=== PATIENT | male | born 1995 | race Caucasian/White ===

== ENCOUNTER 2017-05-16 16:57 | Emergency (ER) | payer OTHER, SELFPAY ==
[2017-05-16 16:59] VITALS: BP 134/80; PULSE 73; RESP 18; TEMP 36.9; O2SAT 97; BMI 18.0
--- NOTE | 2017-05-16 17:58 | RAD_ITS ---
STUDY: X-RAY CHEST REASON FOR EXAM: Male, 21 years old. Cough for one week TECHNIQUE: PA and lateral views of the chest. COMPARISON: None. FINDINGS: The lungs are clear and expanded. Normal variant azygous fissure. There is no demonstrated pleural abnormality. Normal size heart. Normal mediastinum and roger. Normal visualized pulmonary arteries. Normal visualized aortic arch and descending thoracic aorta. Normal visualized thoracic spine. Normal visualized ribs, clavicles, and shoulders. There is no demonstrated abnormality of the visualized soft tissue structures of the upper abdomen. RAD/Chest PA and Lateral IMPRESSION: No acute cardiopulmonary process. Electronically Signed: Graham Wolfe MD at 19:19 EST , Service support ,
--- NOTE | 2017-05-16 19:49 | ED.DCSUM_ITS ---
- ER Visit Summary Date of Service: 05/16/17 Chief Complaint: Cough History of Present Illness: The patient is a 21 M with a cough for the past 5 days. He occasionally has green sputum. He states he had a fever last week, but this has been resolved for several days. He denies wheezing. He does report having occasional posttussive emesis. He is a smoker. Physical Examination: Vital signs are unremarkable. Pulse ox is 97% on room air. Patient is in no acute distress and is nontoxic appearing. Head and neck examination is normal. Heart is regular rate and rhythm. Palpable pulses are noted throughout. Lungs are clear with good air movement throughout. Abdomen is soft and nontender. Bowel sounds are noted. Test Results: Two-view chest x-ray reveals no acute process. Emergency Department Course and Treatment: Test results were discussed with the patient. He is given Tessalon Perles to help control cough. He can also use Robitussin [id number]. Treatment Plan: [] Disposition: Discharge Impression: Viral URI with cough This note was generated with [employer] dictation software. It may contain incorrect words, spelling, and punctuation that were not noted in review of the chart prior to signing ED Disposition - Plan for ED Patient: Disposition: Home or Assisted Living Chief Complaint: Cough Instructions: ED Upper Resp Infec No Abx Tx Prescriptions: Benzonatate [Tessalon Perle] 100 mg PO 4X/DAY PRN PRN #20 capsule PRN Reason: Cough Referrals: Gavino Ram III, MD [Primary Care Provider] - 1-2 Weeks
[2017-05-16 19:55] VITALS: PULSE 98; RESP 12; O2SAT 100
== END 2017-05-16 19:55 | disposition home or self-care (01) ==
PROVIDERS: Emergency Provider Emergency Medicine; Family Provider Family Medicine; PCP Family Medicine
DX: J06.9 Acute upper respiratory infection, unspecified (principal); R05 Cough; F17.200 Nicotine dependence, unspecified, uncomplicated
CPT/HCPCS: 71046; 99282

== ENCOUNTER 2017-06-15 19:16 | Emergency (ER) | payer OTHER, SELFPAY ==
[2017-06-15 19:17] VITALS: BP 137/86; PULSE 89; RESP 18; TEMP 36.8; O2SAT 96; BMI 17.5
[2017-06-15 19:27] VITALS: O2SAT 97
--- NOTE | 2017-06-15 19:49 | ED.VISSUMM ---
- ER Visit Summary Date of Service: 06/15/17 Chief Complaint: [Cough] History of Present Illness: The patient is a 22 M [presents with a cough ?1 week. Patient coughing up thick yellow sputum. Patient had subjective fever. Patient denies sore throat or body aches. Patient denies sick contacts. Patient denies shortness of breath.] Physical Examination: [HEENT-PERRLA, EOMI. Cranial nerves II through XII grossly intact. TMs clear. Mucous membranes moist. No adenopathy. Cardiovascular-regular rate and rhythm without murmur or ectopy Lungs-clear to auscultation, chest wall stable without crepitus or subcu emphysema Abdomen-normoactive bowel sounds, soft, nontender, no rebound or rigidity, no peritoneal signs. Extremities-intact ?4, normal range of motion, normal pulses, atraumatic] Test Results: [None indicated] Emergency Department Course and Treatment: [Patient was started on Zithromax and Tessalon Perles] Treatment Plan: [Treat with Zithromax and Tessalon Perles] Disposition: [Discharged to home in stable condition. Patient advised to return if increasing shortness of breath or condition should worsen in any way.] Impression: [Upper respiratory infection] This note was generated with [employer] dictation software. It may contain incorrect words, spelling, and punctuation that were not noted in review of the chart prior to signing ED Disposition - Plan for ED Patient: Chief Complaint: Cough Referrals: Gavino Ram III, MD [Primary Care Provider] -
--- NOTE | 2017-06-15 19:52 | ED.DEP ---
ED Disposition - Plan for ED Patient: Chief Complaint: Cough Instructions: ED Upper Resp Infec Abx Tx Prescriptions: Azithromycin [Zithromax] 250 mg PO DAILY #4 tab Benzonatate [Tessalon Perle] 200 mg PO TID PRN PRN #20 cap PRN Reason: Cough Referrals: Gavino Ram III, MD [Primary Care Provider] - 5-7 Days
[2017-06-15] MEDS: Azithromycin 250 MG Tablet 500 MG PO (20:00)
--- NOTE | 2017-06-15 20:04 | ED.RN ---
[PT EDUCATED ON WRITTEN AND VERBAL DISCHARGE INSTRUCTIONS AND HOME GOING PRESCRIPTIONS. PT VERBALIZES UNDERSTANDING AND DENIES ANY FURTHER QUESTIONS. MEDICATION GIVEN AND PT SWALLOWED WITHOUT DIFFICULTY. PT AMBULATORY HOME WITH SPOUSE.
== END 2017-06-15 20:05 | disposition home or self-care (01) ==
PROVIDERS: Emergency Provider Emergency Medicine; Family Provider Family Medicine; PCP Family Medicine
DX: J06.9 Acute upper respiratory infection, unspecified (principal); Z72.0 Tobacco use
CPT/HCPCS: 99283

== ENCOUNTER 2017-09-08 19:11 | Emergency (ER) | payer OTHER, SELFPAY ==
[2017-09-08 19:13] VITALS: BP 128/79; PULSE 94; RESP 18; TEMP 37.3; O2SAT 98; BMI 17.6
--- NOTE | 2017-09-08 19:49 | EKG12_ITS ---
Test Reason : CP Blood Pressure : / mmHG Vent. Rate : 073 BPM Atrial Rate : 073 BPM P-R Int : 158 ms QRS Dur : 098 ms QT Int : 358 ms P-R-T Axes : 075 085 079 degrees QTc Int : 394 ms Normal sinus rhythm Normal ECG Confirmed by ZULLY LEBLANC, TALI ([id number]), fashion editor KLAUDIA CARNES ([id number]) on 09/14/2017 3:09:47 PM Referred By: ALEKSANDR Confirmed By:TALI ANDREA MD
--- NOTE | 2017-09-08 19:53 | ED.DCSUM_ITS ---
- ER Visit Summary Date of Service: 09/08/17 Chief Complaint: Chest pain History of Present Illness: The patient is a 22 M presenting with chest pain starting around 2 AM. He states this was a continuous pain throughout the day. He was able to work throughout the day. He has pain in the left side of his chest. He denies nausea or vomiting. Denies diaphoresis. Complains of mild shortness of breath. He has not taken medications prior to arrival. He is a smoker. No other coronary disease risk factors. No PE/DVT risk. Physical Examination: Vitals are stable. Patient is afebrile. Alert no acute distress. HEENT exam is unremarkable. Neck is supple. Lungs are clear and equal bilaterally. Left-sided chest tenderness with no crepitus Heart is regular rate and rhythm. Abdomen is soft nontender nondistended. Extremities are unremarkable. Skin is warm and dry. No focal neurologic deficit. Remainder of exam is unremarkable. Emergency Department Course and Treatment: EKG is sinus rate of 73 with no acute ischemic changes. Patient is given Toradol IM. Chest x-ray shows no acute process. CBC, chemistries unremarkable. Troponin is negative. He was given Toradol with improvement of his pain. He is given a prescription for Naprosyn. Advised to follow-up with primary care physician. Advised return to ED if worsening complaints. Disposition: Discharge home Impression: Chest wall pain This note was generated with [employer] dictation software. It may contain incorrect words, spelling, and punctuation that were not noted in review of the chart prior to signing ED Disposition - Plan for ED Patient: Disposition: Home or Assisted Living Chief Complaint: Chest Pain Instructions: ED Strain Chest Wall Prescriptions: Naproxen [Naprosyn] 500 mg PO BID PRN #20 tablet Referrals: Gavino Ram III, MD [Primary Care Provider] -
[2017-09-08] MEDS: Ketorolac 60 MG/2 ML Vial IM (19:54)
--- NOTE | 2017-09-08 19:54 | NURSING ---
NO OLD EKG
--- NOTE | 2017-09-08 19:55 | RAD_ITS ---
STUDY: X-RAY CHEST REASON FOR EXAM: Male, 22 years old. Chest pain TECHNIQUE: Single frontal view of the chest. COMPARISON: May 16, 2017 FINDINGS: The lungs are hyperaerated. The lungs are clear and expanded. There is no demonstrated pleural abnormality. Normal size heart. Normal mediastinum and roger. Normal visualized pulmonary arteries. Normal visualized aortic arch and descending thoracic aorta. Normal visualized thoracic spine. Normal visualized ribs, clavicles, and shoulders. There is no demonstrated abnormality of the visualized soft tissue structures of the upper abdomen. RAD/Chest 1 View (Portable) IMPRESSION: Small airways disease Electronically Signed: Shon Hussein MD at 20:25 EDT , Service support ,
[2017-09-08 19:59] VITALS: O2SAT 98
[2017-09-08 20:08] LABS: Absolute Lymphocyte Count 1.78 X10^3/ul (0.83-4.51); Absolute Neutrophil Count 4.5 X10^3/uL (2.0-7.7); Basophil# 0.03 X10^3/uL; Basophil% 0.4 % (0-1); Eosinophil# 0.02 X10^3/uL; Eosinophils% 0.3 % (0-5); Hematocrit 41.3 % (40-54); Hemoglobin 14.5 g/dl (13.0-16.5); Lymphocyte # 1.78 X10^3/ul (4.0); Lymphocyte % 25.8 % (19-41); Mean Corp Hgb Conc 35.1 g/gl (32-36); Mean Corpuscular Hgb 28.3 pg (27.0-32.0); Mean Corpuscular Volume 80.5 fL (80-94); Mean Platelet Vol. 9.7 fl (6.2-12.0); Monocyte% 8.7 % (0-10); Neutrophil # 4.46 X10^3/uL (2.7-7.7); Neutrophil % 64.8 % (47-70); Platelet Count 231 K/mm3 (150-450); RBC Distribution Width CV 12.3 % (11.6-14.6); Red Blood Count 5.13 M/mm3 (4.6-6.2); White Blood Count 6.9 K/mm3 (4.4-11.0)
[2017-09-08 20:09] LABS: POSITIVE COUNT NO; POSITIVE DIFFERENTIAL NO; POSITIVE MORPHOLOGY NO
[2017-09-08 20:12] VITALS: BP 114/80; PULSE 71; RESP 13; O2SAT 98
[2017-09-08 20:23] LABS: Anion Gap 8 (5-15); BUN 9 mg/dL (7-18); BUN/Creat Ratio 10.3 RATIO (10-20); Calcium,Total 8.7 mg/dL (8.5-10.1); Chloride 105 mmol/L (98-107); Creatinine, Serum 0.88 mg/dL (0.70-1.30); EST Glomerular Filtration Rate 116 mL/min (>60); Est Glom Filt Rate - Afr Amer 141 mL/min (>60); Estimated Creatinine Clearance 116.82 ml/min; Glucose 88 mg/dL (74-106); Potassium 3.6 mmol/L (3.5-5.1); Sodium Level 144 mmol/L (136-145)
[2017-09-08 21:00] VITALS: BP 114/80; PULSE 73; RESP 13; O2SAT 97
--- NOTE | 2017-09-08 21:56 | ED.DEP ---
ED Disposition - Plan for ED Patient: Chief Complaint: Chest Pain Instructions: ED Strain Chest Wall Prescriptions: Naproxen [Naprosyn] 500 mg PO BID PRN #20 tablet Referrals: Gavino Ram III, MD [Primary Care Provider] -
[2017-09-08 21:58] VITALS: BP 126/78; PULSE 57; RESP 12; O2SAT 97
--- NOTE | 2017-09-08 22:06 | ED.RN ---
REVIEWED D/C INSTRUCTIONS, FOLLOW UP CARE, AND S/S THAT WOULD WARRANT A RETURN TO THE ED WITH PT. PT VERBALIZED AN UNDERSTANDING AND DENIES FURTHER QUESTIONS FOR THIS RN. PT SKIN P/W/D, RESP EVEN AND UNLABORED, PT A&O X 3, NO DISTRESS NOTED. PT AMBULATED OUT OF ED, GAIT STEADY.
== END 2017-09-08 22:08 | disposition home or self-care (01) ==
LOC: ED 19:51
PROVIDERS: Emergency Provider Emergency Medicine; Family Provider Family Medicine; PCP Family Medicine
DX: R07.89 Other chest pain (principal); F17.200 Nicotine dependence, unspecified, uncomplicated
CPT/HCPCS: 71045; 80048; 84484; 85025; 93005; 96372; 99284; A4216

== ENCOUNTER 2018-02-24 | Emergency (ER) | payer OTHER, SELFPAY ==
[2018-02-24 00:03] VITALS: BP 129/96; PULSE 83; RESP 20; TEMP 36.7; O2SAT 97; BMI 18.5
--- NOTE | 2018-02-24 00:28 | ED.DCSUM_ITS ---
- ER Visit Summary Date of Service: 02/24/18 Chief Complaint: Lump at right groin History of Present Illness: The patient is a 22 M who presents with a lump in his right groin. He noticed it a few days ago. It is tender. He states that the visitor with him found out about it so made him to the emergency department. He denies any fevers nausea vomiting diarrhea abdominal pain. Physical Examination: Afebrile vitals are normal Heart regular rate and rhythm Lungs clear Abdomen soft nontender nondistended There is a tender mobile firm nodule at the right groin which I believe is an enlarged lymph node. I do not believe this is a hernia. Test Results: Not indicated Emergency Department Course and Treatment: Patient advised on supportive care and advised to follow-up with his primary care physician. He understands to return for new or worsening symptoms and was discharged home. Treatment Plan: [] Disposition: Discharge Impression: Lymphadenopathy This note was generated with [employer] dictation software. It may contain incorrect words, spelling, and punctuation that were not noted in review of the chart prior to signing ED Disposition - Plan for ED Patient: Chief Complaint: Abd Pain Referrals: Gavino Ram III, MD [Primary Care Provider] -
--- NOTE | 2018-02-24 00:28 | ED.DEP ---
ED Disposition - Plan for ED Patient: Chief Complaint: Abd Pain Referrals: Gavino Ram III, MD [Primary Care Provider] - Additional Instructions: You were seen today for a lump in the right groin. This does not appear to be a hernia. Use Tylenol or ibuprofen for pain and follow-up with your primary care physician. He should return to the emergency department should he develop new or worsening symptoms such as fevers abdominal pain vomiting.
--- OUTSIDE RECORDS SUMMARY | 2018-04-21 00:24 | XMS RPT_ITS ---
:1995 Author Organization OHIP Care Team Providers Name Role Phone Gavino Ram III Primary Care Unavailable Ellen Nails Attending Unavailable Gavino Ram III Primary Care Unavailable Anil Phillips Attending Unavailable Yo VAZQUEZ, Gavino Primary Care Unavailable Ashley Mistry Attending Unavailable Cebul III, Gavino Primary Care Unavailable Lj Reeves Attending Unavailable PROBLEMS PROBLEMS No Problem Records FoundPROCEDURES PROCEDURES No Procedure Records FoundRESULTS RESULTS DISCHARGE INSTRUCTION Observed: 02/24/2018 Status: F Source: CASCADE 12:29 AM [facility] REPOSITORY [facility] Medical Records Department [address] [place] [address] Discharge Instruction 02/24/18 0028 MR#: [id number] Acct: [id number] Name: DOMINIQUE VIZCAINO Rep #: [id number] : 1995 22 From: Lj Reeves MD PCP: Gavino Ram III, MD Status: PRE ER ED Disposition - Plan for ED Patient: Chief Complaint: Abd Pain Referrals: Gavino Ram III, MD [Primary Care Provider] - Additional Instructions: You were seen today for a lump in the right groin. This does not appear to be a hernia. Use Tylenol or ibuprofen for pain and follow-up with your primary care physician. He should return to the emergency department should he develop new or worsening symptoms such as fevers abdominal pain vomiting. What to do if you have Problems For any increased pain, shortness of breath, bleeding, nausea or vomiting, chest pain, or any unexpected problems, contact your Primary Care Provider. Call [facility] ([phone]) or report to the closest Emergency Room. Call 911 if necessary. 02/24/18 0029 <Electronically signed by Lj Reeves MD> Date Lj Reeves MD Cosigner Signature (If Indicated): Date CC: Gavino Ram III, MD EMERGENCY DEPARTMENT Observed: 02/24/2018 Status: F Source: CASCADE SUMMARY 12:28 AM [facility] REPOSITORY [facility] Medical Records Department [address] [place] [address] Emergency Department Summary 02/24/18 0027 MR#: [id number] Acct: [id number] Name: DOMINIQUE VIZCAINO Rep #: [id number] : 1995 22 From: Lj Reeves MD PCP: Gavino Ram III, MD Status: PRE ER - ER Visit Summary Date of Service: 02/24/18 Chief Complaint: Lump at right groin History of Present Illness: The patient is a 22 M who presents with a lump in his right groin. He noticed it a few days ago. It is tender. He states that the visitor with him found out about it so made him to the emergency department. He denies any fevers nausea vomiting diarrhea abdominal pain. Physical Examination: Afebrile vitals are normal Heart regular rate and rhythm Lungs clear Abdomen soft nontender nondistended There is a tender mobile firm nodule at the right groin which I believe is an enlarged lymph node. I do not believe this is a hernia. Test Results: Not indicated Emergency Department Course and Treatment: Patient advised on supportive care and advised to follow-up with his primary care physician. He understands to return for new or worsening symptoms and was discharged home. Treatment Plan: [] Disposition: Discharge Impression: Lymphadenopathy This note was generated with benchee dictation software. It may contain incorrect words, spelling, and punctuation that were not noted in review of the chart prior to signing ED Disposition - Plan for ED Patient: Chief Complaint: Abd Pain Referrals: Gavino Ram III, MD [Primary Care Provider] - What to do if you have Problems For any increased pain, shortness of breath, bleeding, nausea or vomiting, chest pain, or any unexpected problems, contact your Primary Care Provider. Call [facility] ([phone]) or report to the closest Emergency Room. Call 911 if necessary. 02/24/18 0028 <Electronically signed by Lj Reeves MD> Date Lj Reeves MD Cosigner Signature (If Indicated): Date CC: Gavino Ram III, MD 12 LEAD ELECTROCARDIOGRAM Observed: 09/14/2017 Status: F Source: YUVAL 3:10 PM [facility] REPOSITORY [facility] Cardiovascular Services [address] [place] [address] 12 Lead EKG 09/08/171917 MR#: [id number] Acct: [id number] Name: DOMINIQUE VIZCAINO Rep #: [id number] : 1995 22 From: Jostin Andrea MD Attending Dr: Status: DEP ER Ordering Dr: Ashley Mistry MD Date: 09/08/17 Location: ED Sex: M C Admitted: Test Reason : CP Blood Pressure : / mmHG Vent. Rate : 073 BPM Atrial Rate : 073 BPM P-R Int : 158 ms QRS Dur : 098 ms QT Int : 358 ms P-R-T Axes : 075 085 079 degrees QTc Int : 394 ms Normal sinus rhythm Normal ECG Confirmed by ZULLY LEBLANC, JOSTIN ([id number]), greeting card editor KLAUDIA CARNES ([id number]) on 09/14/2017 3:09:47 PM Referred By: ALEKSANDR Confirmed By:JOSTIN ANDREA MD 09/14/17 1509 Date Jostin Andrea MD CC: Ashley Mistry MD; Gavino Ram III, MD Signed EMERGENCY DEPARTMENT Observed: 09/08/2017 Status: F Source: CASCADE SUMMARY 10:33 PM [facility] REPOS[facility] Medical Records Department [address] [place] [address] Emergency Department Summary 09/08/171950 MR#: [id number] Acct: [id number] Name: DOMINIQUE VIZCAINO Rep #: [id number] : 1995 22 From: Ashley Mistry MD PCP: Gavino Ram III, MD Status: DEP ER - ER Visit Summary Date of Service: 09/08/17 Chief Complaint: Chest pain History of Present Illness: The patient is a 22 M presenting with chest pain starting around 2 AM. He states this was a continuous pain throughout the day. He was able to work throughout the day. He has pain in the left side of his chest. He denies nausea or vomiting. Denies diaphoresis. Complains of mild shortness of breath. He has not taken medications prior to arrival. He is a smoker. No other coronary disease risk factors. No PE/DVT risk. Physical Examination: Vitals are stable. Patient is afebrile. Alert no acute distress. HEENT exam is unremarkable. Neck is supple. Lungs are clear and equal bilaterally. Left-sided chest tenderness with no crepitus Heart is regular rate and rhythm. Abdomen is soft nontender nondistended. Extremities are unremarkable. Skin is warm and dry. No focal neurologic deficit. Remainder of exam is unremarkable. Emergency Department Course and Treatment: EKG is sinus rate of 73 with no acute ischemic changes. Patient is given Toradol IM. Chest x-ray shows no acute process. CBC, chemistries unremarkable. Troponin is negative. He was given Toradol with improvement of his pain. He is given a prescription for Naprosyn. Advised to follow-up with primary care physician. Advised return to ED if worsening complaints. Disposition: Discharge home Impression: Chest wall pain This note was generated with benchee dictation software. It may contain incorrect words, spelling, and punctuation that were not noted in review of the chart prior to signing ED Disposition - Plan for ED Patient: Disposition: Home or Assisted Living Chief Complaint: Chest Pain Instructions: ED Strain Chest Wall Prescriptions: Naproxen [Naprosyn] 500 mg PO BID PRN #20 tablet Referrals: Gavino Ram III, MD [Primary Care Provider] - What to do if you have Problems For any increased pain, shortness of breath, bleeding, nausea or vomiting, chest pain, or any unexpected problems, contact your Primary Care Provider. Call [facility] ([phone]) or report to the closest Emergency Room. Call 911 if necessary. 09/08/17 2233 <Electronically signed by Ashley Mistry MD> Date Ashley Mistry MD Cosigner Signature (If Indicated): Date CC: Gavino Ram III, MD DISCHARGE INSTRUCTION Observed: 09/08/2017 Status: F Source: YUVAL 9:57 PM [facility] REPOS[facility]ORY [facility] Medical Records Department [address] [place] [address] Discharge Instruction 09/08/17 2156 MR#: [id number] Acct: [id number] Name: MARYELLEN HAYESDOMINIQEU ALEXA Rep #: [id number] : 1995 22 From: Ashley Mistry MD PCP: Gavino Ram III, MD Status: REG ER ED Disposition - Plan for ED Patient: Chief Complaint: Chest Pain Instructions: ED Strain Chest Wall Prescriptions: Naproxen [Naprosyn] 500 mg PO BID PRN #20 tablet Referrals: Gavino Ram III, MD [Primary Care Provider] - What to do if you have Problems For any increased pain, shortness of breath, bleeding, nausea or vomiting, chest pain, or any unexpected problems, contact your Primary Care Provider. Call [facility] ([phone]) or report to the closest Emergency Room. Call 911 if necessary. 09/08/17 1111 <Electronically signed by Ashley Mistry MD> Date Ashley Mistry MD Cosigner Signature (If Indicated): Date CC: Gavino Ram III, MD CBC W/DIFF, AUTOMATED Collected: 09/08/2017 Status: F Source: CASCADE 8:00 PM [facility] REPOSITORY TYPE CODE TESTS RESULT OUT OF RANGE REFERENCE UNITS LAB L100.1000 4.4-11.0 K/mm3 Normal WBC 6.9 LAB L100.1200 4.6-6.2 M/mm3 Normal RBC 5.13 LAB L100.1300 13.0-16.5 g/dl Normal HGB 14.5 LAB L100.1400 40-54 % Normal HCT 41.3 LAB L100.1500 80-94 fL Normal MCV 80.5 LAB L100.1600 27.0-32.0 pg Normal MCH 28.3 LAB L100.1700 32-36 g/gl Normal MCHC 35.1 LAB L100.1810 11.6-14.6 % Normal RDW CV 12.3 LAB L100.1820 35.1-43.9 fl Normal RDW SD 36.0 LAB L100.1900 150-450 K/mm3 Normal PLT 231 LAB L100.2000 6.2-12.0 fl Normal MPV 9.7 LAB L100.2100 47-70 % Normal NEUT% 64.8 LAB L100.2200 19-41 % Normal LY% 25.8 LAB L100.2300 0-10 % Normal MONO% 8.7 LAB L100.2400 0-5 % Normal EO% 0.3 LAB L100.2500 0-1 % Normal BASO% 0.4 LAB L100.2550 0.0-0.9 % Normal IM GRAN % 0.000 Result Comment: IG% - Immature Granulocytes (promyelocytes, myelocytes and metamyelocytes) > 1% indicates that a LEFT SHIFT is Present. LAB L100.2620 2.0-7.7 X10 3/uL Normal Absolute Neut 4.5 LAB L100.2720 0.83-4.51 X10 3/ul Normal Absolute Lymph 1.78 Performed By: #### L100.0100 #### [facility] [address] [place], [address] BASIC METABOLIC Collected: 09/08/2017 Status: F Source: CASCADE PROFILE (BMP) 8:00 PM [facility] REPOSITORY TYPE CODE TESTS RESULT OUT OF RANGE REFERENCE UNITS LAB L501.0100 74-106 mg/dL Normal GLU 88 Result Comment: Please note revised GLUCOSE reference range effective 2017. LAB L501.1000 7-18 mg/dL Normal BUN 9 LAB L501.1100 0.70-1.30 mg/dL Normal CREAT,SERUM 0.88 Result Comment: The validity of the calculated GFR AND GFRAA in patients over 70 years has not been determined. Clinical correlation is essential. LAB L501.1110 >60 mL/min Normal EST GFR 116 Result Comment: Non- GFR Calc LAB L501.1115 >60 mL/min Normal EST GFR - AA 141 Result Comment: GFR Calc LAB L501.1255 ml/min Normal Estimated CRCL 116.82 LAB L501.1300 10-20 RATIO BUN/CRE Normal 10.3 LAB L501.2200 8.5-10 mg/dL .1 CA Normal 8.7 LAB L501.5300 136-14 mmol/L 5 NA Normal 144 LAB L501.5600 3.5-5. mmol/L 1 K Normal 3.6 LAB L501.5900 98-107 mmol/L CL Normal 105 LAB L501.6100 21.0-3 mmol/L 2.0 CO2 Normal 31.0 LAB L501.6200 5-15 GAP Normal 8 Performed By: #### L500.2500, L501.4010 #### [facility] [address] [place], [address] TROPONIN-I Collected: 09/08/2017 Status: F Source: CASCADE 8:00 PM [facility] REPOS[facility]ORY TYPE CODE TESTS RESULT OUT OF RANGE REFERENCE UNITS LAB L501.4010 <0.045 ng/mL Normal < 0.015 TROPONIN-I Result Comment: TROPONIN-I EXPECTED VALUES <0.045 Negative 0.045 - 0.590 Consistent with Cardiac Damage > OR = 0.600 Critical Value Not every elevated troponin is indicative of AZ. These values should be used with clinical judgement in examining the patient's clinical picture for diagnosis. To establish a diagnosis of AZ versus myocardial injury, there must be a demonstrated rise and/or fall in the troponin values, in addition to ischemic symptoms, EKG changes, new regional wall motion abnormality, and/or angiographical evidence. PLEASE NOTE: REFERENCE RANGES EDITED 17 Performed By: #### L500.2500, L501.4010 #### [facility] [address] [place], [address] CHEST 1 VIEW Observed: 09/08/2017 Status: F Source: CASCADE (PORTABLE) 7:50 PM [facility] REPOSITORY [facility] Imaging Services [address] [place] [address] Chest 1 View (Portable) MR#: [id number] Acct: [id number] Name: DOMINIQUE VIZCAINO Rep #: [id number] : 1995 M 22 From: Shon Hussein MD PCP: Gavino Ram III, MD Status: REG ER Study: Chest 1 View (Portable) Date of Exam: 09/08/17 Exam# [id number] Ordering Dr: Ahsley Mistry MD STUDY: X-RAY CHEST REASON FOR EXAM: Male, 22 years old. Chest pain TECHNIQUE: Single frontal view of the chest. COMPARISON: May 16, 2017 FINDINGS: The lungs are hyperaerated. The lungs are clear and expanded. There is no demonstrated pleural abnormality. Normal size heart. Normal mediastinum and roger. Normal visualized pulmonary arteries. Normal visualized aortic arch and descending thoracic aorta. Normal visualized thoracic spine. Normal visualized ribs, clavicles, and shoulders. There is no demonstrated abnormality of the visualized soft tissue structures of the upper abdomen. RAD/Chest 1 View (Portable) IMPRESSION: Small airways disease Electronically Signed: Shon Hussein MD at 20:25 EDT , Service support , CC: Ashley Mistry MD; Gavino Ram III, MD Safety Investigator: Signed DISCHARGE INSTRUCTION Observed: 06/15/2017 Status: F Source: CASCADE 7:53 PM [facility] REPOS[facility]ORY [facility] Medical Records Department [address] [place] [address] Discharge Instruction 06/15/171951 MR#: [id number] Acct: [id number] Name: DOMINIQUE VIZCAINO Rep #: [id number] : 1995 From: Anil Phillips DO PCP: Gavino Ram III, MD Status: PRE ER ED Disposition - Plan for ED Patient: Chief Complaint: Cough Instructions: ED Upper Resp Infec Abx Tx Prescriptions: Azithromycin [Zithromax] 250 mg PO DAILY #4 tab Benzonatate [Tessalon Perle] 200 mg PO TID PRN PRN #20 cap PRN Reason: Cough Referrals: Gavino Ram III, MD [Primary Care Provider] - 5-7 Days What to do if you have Problems For any increased pain, shortness of breath, bleeding, nausea or vomiting, chest pain, or any unexpected problems, contact your Primary Care Provider. Call [facility] ([phone]) or report to the closest Emergency Room. Call 911 if necessary. 06/15/171952 <Electronically signed by Anil Phillips DO> Date Anil Phillips DO Cosigner Signature (If Indicated): Date CC: Gavino Ram III, MD EMERGENCY DEPARTMENT Observed: 06/15/2017 Status: F Source: CASCADE SUMMARY 7:51 PM [facility] REPOS[facility]ORY [facility] Medical Records Department [address] [place] [address] Emergency Department Summary 06/15/17 194 MR#: [id number] Acct: [id number] Name: DOMINIQUE VIZCAINO Rep #: [id number] : 1995 22 From: Anil Phillips DO PCP: Gavino Ram III, MD Status: PRE ER - ER Visit Summary Date of Service: 06/15/17 Chief Complaint: [Cough] History of Present Illness: The patient is a 22 M [presents with a cough 1 week. Patient coughing up thick yellow sputum. Patient had subjective fever. Patient denies sore throat or body aches. Patient denies sick contacts. Patient denies shortness of breath.] Physical Examination: [HEENT-PERRLA, EOMI. Cranial nerves II through XII grossly intact. TMs clear. Mucous membranes moist. No adenopathy. Cardiovascular-regular rate and rhythm without murmur or ectopy Lungs-clear to auscultation, chest wall stable without crepitus or subcu emphysema Abdomen-normoactive bowel sounds, soft, nontender, no rebound or rigidity, no peritoneal signs. Extremities-intact 4, normal range of motion, normal pulses, atraumatic] Test Results: [None indicated] Emergency Department Course and Treatment: [Patient was started on Zithromax and Tessalon Perles] Treatment Plan: [Treat with Zithromax and Tessalon Perles] Disposition: [Discharged to home in stable condition. Patient advised to return if increasing shortness of breath or condition should worsen in any way.] Impression: [Upper respiratory infection] This note was generated with benchee dictation software. It may contain incorrect words, spelling, and punctuation that were not noted in review of the chart prior to signing ED Disposition - Plan for ED Patient: Chief Complaint: Cough Referrals: Gavino Ram III, MD [Primary Care Provider] - What to do if you have Problems For any increased pain, shortness of breath, bleeding, nausea or vomiting, chest pain, or any unexpected problems, contact your Primary Care Provider. Call [facility] ([phone]) or report to the closest Emergency Room. Call 911 if necessary. 06/15/171950 <Electronically signed by Anil Phillips DO> Date Anil Phillips DO Cosigner Signature (If Indicated): Date CC: Gavino Ram III, MD EMERGENCY DEPARTMENT Observed: 05/17/2017 Status: F Source: CASCADE SUMMARY 1:45 AM [facility] REPOS[facility]ORY [facility] Medical Records Department [address] [place] [address] Emergency Department Summary 05/16/171948 MR#: [id number] Acct: [id number] Name: DOMINIQUE VIZCAINO Rep #: [id number] : 1995 21 From: Ellen Nails MD PCP: Gavino Ram III, MD Status: DEP ER - ER Visit Summary Date of Service: 05/16/17 Chief Complaint: Cough History of Present Illness: The patient is a 21 M with a cough for the past 5 days. He occasionally has green sputum. He states he had a fever last week, but this has been resolved for several days. He denies wheezing. He does report having occasional posttussive emesis. He is a smoker. Physical Examination: Vital signs are unremarkable. Pulse ox is 97% on room air. Patient is in no acute distress and is nontoxic appearing. Head and neck examination is normal. Heart is regular rate and rhythm. Palpable pulses are noted throughout. Lungs are clear with good air movement throughout. Abdomen is soft and nontender. Bowel sounds are noted. Test Results: Two-view chest x-ray reveals no acute process. Emergency Department Course and Treatment: Test results were discussed with the patient. He is given Tessalon Perles to help control cough. He can also use Robitussin [id number]-doulwby. Treatment Plan: [] Disposition: Discharge Impression: Viral URI with cough This note was generated with benchee dictation software. It may contain incorrect words, spelling, and punctuation that were not noted in review of the chart prior to signing ED Disposition - Plan for ED Patient: Disposition: Home or Assisted Living Chief Complaint: Cough Instructions: ED Upper Resp Infec No Abx Tx Prescriptions: Benzonatate [Tessalon Perle] 100 mg PO 4X/DAY PRN PRN #20 capsule PRN Reason: Cough Referrals: Gavino Ram III, MD [Primary Care Provider] - 1-2 Weeks What to do if you have Problems For any increased pain, shortness of breath, bleeding, nausea or vomiting, chest pain, or any unexpected problems, contact your Primary Care Provider. Call [facility] ([phone]) or report to the closest Emergency Room. Call 911 if necessary. 05/17/17 0145 <Electronically signed by Ellen Nails MD> Date Ellen Nails MD Cosigner Signature (If Indicated): Date CC: Gavino Ram III, MD DISCHARGE INSTRUCTION Observed: 05/16/2017 Status: F Source: YUVAL 7:50 PM [facility] REPOS[facility]ORY [facility] Medical Records Department [address] [place] [address] Discharge Instruction 05/16/17 1949 MR#: [id number] Acct: [id number] Name: DOMINIQUE VIZCAINO Rep #: [id number] : 1995 21 From: Ellen Nails MD PCP: Gavino Ram III, MD Status: REG ER ED Disposition - Plan for ED Patient: Disposition: Home or Assisted Living Chief Complaint: Cough Instructions: ED Upper Resp Infec No Abx Tx Prescriptions: Benzonatate [Tessalon Perle] 100 mg PO 4X/DAY PRN PRN #20 capsule PRN Reason: Cough Referrals: Gavino Ram III, MD [Primary Care Provider] - 1-2 Weeks What to do if you have Problems For any increased pain, shortness of breath, bleeding, nausea or vomiting, chest pain, or any unexpected problems, contact your Primary Care Provider. Call [facility] ([phone]) or report to the closest Emergency Room. Call 911 if necessary. 05/16/17 1950 <Electronically signed by Ellen Nails MD> Date Ellen Nails MD Cosigner Signature (If Indicated): Date CC: Gavino Ram III, MD CHEST PA AND LATERAL Observed: 05/16/2017 Status: F Source: CASCADE 5:58 PM [facility] REPOS[facility]ORY [facility] Imaging Services [address] [place] [address] Chest PA and Lateral MR#: [id number] Acct: [id number] Name: MARYELLEN GERMANDOMINIQUE KWAN Rep #: [id number] : 1995 M 21 From: Graham Wolfe MD PCP: Gavino Ram III, MD Status: REG ER Study: Chest PA and Lateral Date of Exam: 05/16/17 Exam# [id number] Ordering Dr: Ellen Nails MD STUDY: X-RAY CHEST REASON FOR EXAM: Male, 21 years old. Cough for one week TECHNIQUE: PA and lateral views of the chest. COMPARISON: None. FINDINGS: The lungs are clear and expanded. Normal variant azygous fissure. There is no demonstrated pleural abnormality. Normal size heart. Normal mediastinum and roger. Normal visualized pulmonary arteries. Normal visualized aortic arch and descending thoracic aorta. Normal visualized thoracic spine. Normal visualized ribs, clavicles, and shoulders. There is no demonstrated abnormality of the visualized soft tissue structures of the upper abdomen. RAD/Chest PA and Lateral IMPRESSION: No acute cardiopulmonary process. Electronically Signed: Graham Wolfe MD at 19:19 EST , Service support , CC: Gavino Ram III, MD; Ellen Nails MD Safety Investigator: Signed ALLERGIES ALLERGIES DATE TYPE / CODE NAME / CODE REACTION SEVERITY SOURCE 02/24/2018 Drug No Known Unknown [facility] Allergy/4160 Allergies/F00 Hospital 82831(SNOMED 0202750(RXNOR Repository CT) M) ENCOUNTERS ENCOUNTERS ADMIT/DISCHARGE ACCOUNT ADMITTING ENCOUNTER LOCATION SOURCE NUMBER CLASS 02/24/2018/ [id number] [address] ing:ED Repository 09/08/2017/ [id number] Emergency [address] ing:ED Repository 06/15/2017/ [id number] Emergency [address] ing:ED Repository 05/16/2017/ [id number] Emergency [address] ing:ED Repository PAYERS PAYERS ENCOUNTER GUARANTOR PAYER SUBSCRIBER SOURCE 02/24/2018 DOMINIQUE Johnsonoster [id number] [facility] [address] Number: [id number] Hospital [address]Zff: [phone] [id number] Repository [phone] (HP) Date:1462-44-35[address], [place] [address]MQ: 02/24/2018 Secondary NOT GIVENUNK [place] Insurance:SELF PAY [facility] Effective Repository Date:2018-02-24 09/08/2017 [facility] [address] Kelly Barakat [id number] SR Insurance:GPATPA Mc[place]ureDOB: [place] [address] CERCOPolicy Number: [id number] Hospital [address]Naq: [phone] [id number] Repository [phone] (HP) Date:9617-78-37[address], [place] [address]OA: 09/08/2017 Secondary NOT GIVENUNK [place] Insurance:SELF PAY [facility]: Effective Repository Date:2017-09-08 06/15/2017 [facility] [address] Kelly Barakat [id number] SR Insurance:GPATPA McclureDOB: [place] [address] CER[place]icy Number: [id number] Hospital [address]Her: 330 [id number] Repository [phone] (HP) Date:9923-45-75[address], [place] [address]OC: 06/15/2017 Secondary NOT GIVENUNK [place] Insurance:SELF PAY [facility]: Effective Repository Date:2017-06-15 05/16/2017 [facility] [place] [id number] Insurance:GPATPA McclureDOB: [place] [address] [employer]ER[place] Number: [id number] Hospital [address]Xfa: [phone] [id number] Repository [phone] (HP) Date:3256-04-41[address], [place] [address]NX: 05/16/2017 Secondary NOT GIVENUNK [place] Insurance:SELF PAY [facility] Number: Effective Repository Date:2017-05-16
== END 2018-02-24 00:46 | disposition home or self-care (01) ==
LOC: ED 00:40
PROVIDERS: Emergency Provider Emergency Medicine; Family Provider Family Medicine; PCP Family Medicine
DX: R59.0 Localized enlarged lymph nodes (principal); Z72.0 Tobacco use
CPT/HCPCS: 99282

== ENCOUNTER 2018-07-07 05:55 | Emergency (ER) | payer OTHER, SELFPAY ==
[2018-07-07 05:56] VITALS: BP 136/96; PULSE 86; RESP 18; TEMP 36.7; O2SAT 97; BMI 18.6
--- NOTE | 2018-07-07 05:58 | ED.RN ---
CALLED [facility] AND REQUESTED A RAYON TESTER OR STEWARD/STEWARDESS ROOM TO CONFIRM A DRUG TEST FOR A [facility] CLAIM. SPOKE TO SECURITY WHO STATED THAT NONE WERE THERE AT THIS TIME, AND THEY WILL REQUEST SOMEONE CALL IN WHEN THEY ARRIVE THERE.
--- NOTE | 2018-07-07 06:01 | ED.RN ---
PT STATES HE WORKS [employer] AT [employer] [employer] AND THERE ISN'T A [employer]IN[employer] ENGINE MECHANIC. UNKNOWN IF PT NEEDS DRUG SCREEN, NO ONE ABLE TO ANSWER DRUG SCREEN QUESTION. EDUATED PT ON CALLING [employer] MECH[employer]IC DURING DAY HOURS AND GETTING SCREENED THEN.
--- NOTE | 2018-07-07 06:03 | ED.VIS.GEN ---
History of Present Illness Chief Complaint: Laceration Narrative: Patient stated approximately 1 hour ago he accidentally cut his right knee over the patella with a preparing box tender at work. He noticed some bleeding due to the laceration. Last tetanus unknown. He was able to stop the bleeding with pressure. Current severity is mild. Comes in for closure and further evaluation. Able to walk. He bandaged it up before he came in. Past Medical History - Allergies and Home Meds Allergies/Adverse Reactions: Allergies No Known Allergies Allergy (Verified 02/24/18 00:01) Primary Care Physician: ,[facility] [GROUP OF PHYSICIANS] - Gavino Ram III, MD [Primary Care Provider] - Prior records reviewed: Yes Past Medical History: None Surgical History: noncontributory Lives: Spouse/ Significant Other Smoking Status: Current every day smoker Alcohol: None Drugs: None Review of Systems General: Denies: Chills, Fever, Sweats Eyes: Denies: Visual changes - bilaterally, Diplopia ENT: Denies: Rhinorrhea, Sore throat Cardiovascular: Denies: Chest pain, Palpitations Respiratory: Denies: Dyspnea, Cough, Dyspnea on exertion Gastrointestinal: Denies: Abdominal pain, Nausea, Vomiting, Diarrhea, Melena, Hematochezia Genitourinary: Denies: Dysuria, Hematuria, Frequency Musculoskeletal: Denies: Back pain, Extremity Pain Skin: Reports: - - See HPI. Denies: Rash, Wounds Neurological: Denies: Headache, Weakness, Numbness Physical Exam Vital Signs/Narrative: Vital Signs Temp Pulse Resp BP Pulse Ox 07/07/18 05:56 98.0 F 86 18 136/96 H 97 General: Well nourished, Well developed, No Acute Distress Head: Normocephalic, Atraumatic Eyes: Perrl, EOMI ENT: Moist mucous membranes, No rhinorrhea Neck: Supple, Nontender Cardiovascular: Regular rate, Regular rhythm, No murmurs Respiratory: No distress, CTA bilaterally, Chest nontender Abdomen: Soft, Nontender, Nondistended, Normal bowel sounds Back: Nontender, Normal Inspection Extremities: Nontender, No edema Skin: Normal color, No rash, Trauma - has a 1 inch laceration over the lateral portion of the right patella. Neurological: Alert, Oriented x3, Cranial nerves II-XII grossly intact, Normal Strength, Normal Sensation Psychological: Normal affect, Normal Mood Diagnostic/Tx/Re-eval - Medical Decision Making Wound was cleansed with chlorhexidine. Anesthetized with 4 cc of 1% lidocaine. Washed with 500 cc of saline. Tetanus updated. Closed with simple suture x 6. Bacitracin applied and the wound dressed. Patient will follow-up as an outpatient with [facility] care. ED Disposition - Plan for ED Patient: Disposition: [place] Hospital Diagnosis: Laceration of right knee Instructions: ED Laceration All Referrals: Gavino Ram III, MD [Primary Care Provider] - [facility] [GROUP OF PHYSICIANS] -
[2018-07-07] MEDS: Diphth,Pertuss(Acell),Tet Vac 0.5 ML Vial IM (06:08)
--- NOTE | 2018-07-07 06:08 | ED.RN ---
[employer] CALLED BACK, AND REQUESTED A DRUG TEST ON THIS PT, ZELDA FROM [facility] WAS CALLED IN.
[2018-07-07 06:35] VITALS: BP 108/70; PULSE 72; RESP 16; O2SAT 100
== END 2018-07-07 06:52 | disposition home or self-care (01) ==
PROVIDERS: Emergency Provider Emergency Medicine; Family Provider Family Medicine; PCP Family Medicine
DX: S81.011A Laceration without foreign body, right knee, initial encounter (principal); W26.8XXA Contact with other sharp object(s), not elsewhere classified, initial encounter; Y93.9 Activity, unspecified; Y92.9 Unspecified place or not applicable; Y99.0 Civilian activity done for income or pay; F17.200 Nicotine dependence, unspecified, uncomplicated
CPT/HCPCS: 12001; 90471; 90715; 99284

== ENCOUNTER 2019-09-29 23:59 | Emergency (ER) | payer OTHER, SELFPAY ==
[2019-09-30] VITALS: BP 141/93; PULSE 101; RESP 16; TEMP 36.2; O2SAT 99
[2019-09-30 00:01] VITALS: BP 141/93; PULSE 93; RESP 16; TEMP 36.2; O2SAT 99; BMI 17.0
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
--- NOTE | 2019-09-30 00:33 | ED.DEP ---
ED Disposition - Plan for ED Patient: Disposition: Home or Assisted Living Instructions: ED [facility] Referrals: Gavino Ram III, MD [Primary Care Provider] - 1 Week if not improving Additional Instructions: Cool compresses the hands and feet and lower extremities. Tylenol Motrin for pain. Keep wounds clean and dry. May wash but then dry thoroughly. Apply burn cream twice daily. Watch for any signs of infection. Keep covered and clean at work.
[2019-09-30] MEDS: HYDROcodone Bitartrate/Apap 5/325 Tablet PO (00:47)
[2019-09-30] MEDS: Silver Sulfadiazine 1% Crm 50 gm Bottle 1 APPLIC TOPICAL (00:47)
== END 2019-09-30 01:14 | disposition home or self-care (01) ==
LOC: ED 09-30 00:39
PROVIDERS: Emergency Provider Emergency Medicine; PCP Family Medicine
DX: T24.201A Burn of second degree of unspecified site of right lower limb, except ankle and foot, initial encounter (principal); T24.202A Burn of second degree of unspecified site of left lower limb, except ankle and foot, initial encounter; T23.161A Burn of first degree of back of right hand, initial encounter; T23.162A Burn of first degree of back of left hand, initial encounter; X03.0XXA Exposure to flames in controlled fire, not in building or structure, initial encounter; Y93.89 Activity, other specified; Y92.9 Unspecified place or not applicable; Y99.8 Other external cause status
CPT/HCPCS: 99283

== ENCOUNTER 2020-09-22 10:26 | Emergency (ER) | payer OTHER, SELFPAY ==
[2020-09-22 10:27] VITALS: BP 134/79; PULSE 94; RESP 16; TEMP 36.4; O2SAT 97; BMI 17.4
--- NOTE | 2020-09-22 10:49 | CT_ITS ---
STUDY: CT MAXILLOFACIAL SINUSES REASON FOR EXAM: Male, 25 years old. Injury RADIATION DOSAGE (If Supplied By Facility): CTDIvol = ( 29.39 ) mGy, DLP = ( 576.84 ) mGycm TECHNIQUE: The patient was scanned in a multi detector CT scanner. High resolution axial imaging was performed without the administration of intravenous contrast material. Sagittal and coronal images were reconstructed. Individualized dose optimization techniques were used for this CT. COMPARISON: None. FINDINGS: FRONTAL SINUSES: Normal aeration, without mucosal inflammatory disease. ETHMOIDAL SINUSES: Normal aeration, without mucosal inflammatory disease. MAXILLARY SINUSES: Normal aeration, without mucosal inflammatory disease. SPHENOIDAL SINUSES: Normal aeration, without mucosal inflammatory disease. There is patency of the bilateral maxillary infundibuli with normal uncinate processes, ethmoid bullae, and hiatus semilunaris. Normal bilateral middle turbinates. Normal bilateral inferior turbinates. Normal midline nasal septum. There is patency of the bilateral nasal airways. The visualized osseous structures are normal. The visualized bilateral orbital contents are normal. CT/Sinus/Facial Bone IMPRESSION: Normal CT examination of the maxillofacial sinuses. Electronically Signed: Aldair Jaime MD at 11:19 EDT , Service support ,
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
== END 2020-09-22 11:44 | disposition home or self-care (01) ==
LOC: ED 11:41
PROVIDERS: Emergency Provider Emergency Medicine; PCP Family Medicine
DX: S00.83XA Contusion of other part of head, initial encounter (principal); S00.33XA Contusion of nose, initial encounter; X58.XXXA Exposure to other specified factors, initial encounter
CPT/HCPCS: 70450; 70486; 99282